=== PATIENT | male | born 1960 | race American Indian/Alaskan Native ===

== ENCOUNTER 2017-09-28 08:26 | Emergency (ER) | payer OTHER ==
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
[2017-09-28] MEDS ORDERED: NORCO 5/325 PO ONE (10:23)
[2017-09-28] MEDS ORDERED: FLEXERIL PO ONE (10:23)
[2017-09-28] MEDS ORDERED: ZESTRIL PO ONE (10:23)
[2017-09-28] MEDS ORDERED: HCTZ PO ONE (10:23)
[2017-09-28] MEDS ORDERED: DELTASONE PO ONE (10:33)
[2017-09-28] MEDS ORDERED: BENADRYL PO ONE (10:33)
[2017-09-28 11:29] VITALS: BP 130/76
== END 2017-09-28 11:42 | disposition home or self-care (01) ==
LOC: ED 08:26
DX: S39.012A Strain of muscle, fascia and tendon of lower back, initial encounter (principal); I10 Essential (primary) hypertension; E11.9 Type 2 diabetes mellitus without complications; Z88.6 Allergy status to analgesic agent; V89.2XXA Person injured in unspecified motor-vehicle accident, traffic, initial encounter; Y93.89 Activity, other specified; Y92.89 Other specified places as the place of occurrence of the external cause; Y99.8 Other external cause status
CPT/HCPCS: 72100; 99284; J7512